=== PATIENT | female | born 1995 | race Caucasian/White ===

== ENCOUNTER 2017-12-31 15:55 | Outpatient (CLI) | payer OTHER ==
[2017-12-31 16:47] LABS: ABSOLUTE EOSINOPHILS # (AUTO) 0.1 10^3/uL (0.0-0.6); ABSOLUTE LYMPHOCYTES (AUTO) 1.3 10^3/uL (0.5-4.7); ABSOLUTE MONOCYTES (AUTO) 0.7 10^3/uL (0.1-1.4); ABSOLUTE NEUT (AUTO) 7.6 10^3/uL (1.7-8.2); BASOPHILS % (AUTO) 0.3 % (0-2); EOSINOPHILS % (AUTO) 1.2 % (0-6); HEMATOCRIT 32.3 % (36.0-47.0); HEMOGLOBIN 11.2 g/dL (12.0-15.5); LYMPHOCYTES % (AUTO) 13.7 % (13-45); MEAN CORPUSCULAR HEMOGLOBIN 30.6 pg (27.0-33.4); MEAN CORPUSCULAR HGB CONC 34.6 g/dL (32.0-36.0); MEAN CORPUSCULAR VOLUME 88 fl (80-97); MONOCYTES % (AUTO) 7.4 % (3-13); PLATELET COUNT 221 10^3/uL (150-450); RED BLOOD COUNT 3.65 10^6/uL (3.72-5.28); RED CELL DISTRIBUTION WIDTH 12.2 % (11.5-14.0); SEGMENTED NEUTROPHILS % (AUTO) 77.4 % (42-78); TOTAL CELLS COUNTED % (AUTO) 100 %; WHITE BLOOD COUNT 9.8 10^3/uL (4.0-10.5)
[2017-12-31 16:57] LABS: APPEARANCE,URINE CLEAR; BILIRUBIN,URINE NEGATIVE (NEGATIVE); COLOR,URINE STRAW; GLUCOSE, URINE NEGATIVE (NEGATIVE); KETONES,URINE NEGATIVE (NEGATIVE); LEUKOCYTE ESTERASE,URINE NEGATIVE (NEGATIVE); NITRITE,URINE NEGATIVE (NEGATIVE); PROTEIN,URINE NEGATIVE (NEGATIVE); URINE SPECIFIC GRAVITY 1.004; UROBILINOGEN,URINE NEGATIVE mg/dL (<2.0)
[2017-12-31 17:06] LABS: ALANINE AMINOTRANSFERASE 30 U/L (9-52); ALBUMIN 3.6 g/dL (3.5-5.0); ALKALINE PHOSPHATASE 97 U/L (38-126); ANION GAP 10 (5-19); ASPARTATE AMINO TRANSFERASE 20 U/L (14-36); BILIRUBIN,TOTAL 0.1 mg/dL (0.2-1.3); BLOOD UREA NITROGEN 8 mg/dL (7-20); CALCIUM 8.9 mg/dL (8.4-10.2); CARBON DIOXIDE 22 mmol/L (22-30); CHLORIDE 106 mmol/L (98-107); GLUCOSE 83 mg/dL (75-110); LDH 426 U/L (313-618); POTASSIUM 3.7 mmol/L (3.6-5.0); SODIUM 138.1 mmol/L (137-145); TOTAL PROTEIN 6.3 g/dL (6.3-8.2); URIC ACID 2.6 mg/dL (2.5-6.2)
[2017-12-31 17:19] LABS: UR PRO/CREAT RATIO RESULT 0.4 mg/mg (0.0-0.2); URINE CREATININE 30.2 mg/dL (16-327); URINE PROTEIN 13.3 mg/dL (<12)
[2017-12-31 17:22] LABS: URINE AMPHETAMINES SCREEN NEGATIVE; URINE BARBITURATES SCREEN NEGATIVE; URINE BENZODIAZEPINES SCREEN NEGATIVE; URINE COCAINE SCREEN NEGATIVE; URINE MARIJUANA (THC) SCREEN NEGATIVE; URINE METHADONE SCREEN NEGATIVE; URINE PHENCYCLIDINE SCREEN NEGATIVE
== END 2017-12-31 17:31 | disposition home or self-care (01) ==
LOC: LC 15:55
PROVIDERS: ATTEND Obstetrics & Gynecology
PROC: 4A1HXCZ Monitoring of Products of Conception, Cardiac Rate, External Approach (ICD-10-PCS; principal; 2017-12-31)
DX: O99.89 Other specified diseases and conditions complicating pregnancy, childbirth and the puerperium (principal); H53.8 Other visual disturbances; Z3A.26 26 weeks gestation of pregnancy
CPT/HCPCS: 36415; 80053; 80307; 81005; 82570; 83615; 84156; 84550; 85025

== ENCOUNTER 2018-01-01 18:36 | Outpatient (CLI) | payer OTHER ==
[2018-01-01 19:42] LABS: URINE PROTEIN 12.1 mg/dL (<12)
[2018-01-01 19:43] LABS: 24 HOUR URINE PROTEIN RESULT 242 mg/day (42-225)
== END 2018-01-01 19:57 | disposition home or self-care (01) ==
LOC: LC 18:36
PROVIDERS: ATTEND Obstetrics & Gynecology
PROC: 4A1HXCZ Monitoring of Products of Conception, Cardiac Rate, External Approach (ICD-10-PCS; principal; 2018-01-01)
DX: O99.89 Other specified diseases and conditions complicating pregnancy, childbirth and the puerperium (principal); H53.8 Other visual disturbances; Z3A.26 26 weeks gestation of pregnancy
CPT/HCPCS: 84156

== ENCOUNTER 2018-04-14 15:24 | Inpatient (IN) | payer OTHER ==
[2018-04-14 16:23] LABS: AMNISURE (ROM) POSITIVE (NEGATIVE)
[2018-04-14 16:25] LABS: APPEARANCE,URINE CLEAR; BILIRUBIN,URINE NEGATIVE (NEGATIVE); COLOR,URINE STRAW; GLUCOSE, URINE NEGATIVE (NEGATIVE); KETONES,URINE NEGATIVE (NEGATIVE); LEUKOCYTE ESTERASE,URINE NEGATIVE (NEGATIVE); NITRITE,URINE NEGATIVE (NEGATIVE); PROTEIN,URINE NEGATIVE (NEGATIVE); URINE SPECIFIC GRAVITY 1.004; UROBILINOGEN,URINE NEGATIVE mg/dL (<2.0)
[2018-04-14] MEDS ORDERED: RINGERS SOLUTION,LACTATED 1,000 ML IV ONE (16:40)
[2018-04-14] MEDS ORDERED: RINGERS SOLUTION,LACTATED 1,000 ML IV PRN (16:40)
[2018-04-14 16:45] LABS: URINE AMPHETAMINES SCREEN NEGATIVE; URINE BARBITURATES SCREEN NEGATIVE; URINE BENZODIAZEPINES SCREEN NEGATIVE; URINE COCAINE SCREEN NEGATIVE; URINE MARIJUANA (THC) SCREEN NEGATIVE; URINE METHADONE SCREEN NEGATIVE; URINE PHENCYCLIDINE SCREEN NEGATIVE
[2018-04-14 17:12] LABS: ABSOLUTE LYMPHOCYTES (AUTO) 1.7 10^3/uL (0.5-4.7); ABSOLUTE MONOCYTES (AUTO) 0.5 10^3/uL (0.1-1.4); ABSOLUTE NEUT (AUTO) 7.7 10^3/uL (1.7-8.2); BASOPHILS % (AUTO) 0.1 % (0-2); EOSINOPHILS % (AUTO) 0.4 % (0-6); HEMATOCRIT 31.8 % (36.0-47.0); HEMOGLOBIN 10.5 g/dL (12.0-15.5); LYMPHOCYTES % (AUTO) 17.5 % (13-45); MEAN CORPUSCULAR HEMOGLOBIN 25.7 pg (27.0-33.4); MEAN CORPUSCULAR HGB CONC 32.9 g/dL (32.0-36.0); MEAN CORPUSCULAR VOLUME 78 fl (80-97); PLATELET COUNT 183 10^3/uL (150-450); RED BLOOD COUNT 4.08 10^6/uL (3.72-5.28); RED CELL DISTRIBUTION WIDTH 14.2 % (11.5-14.0); TOTAL CELLS COUNTED % (AUTO) 100 %
--- NOTE | 2018-04-14 17:13 | Admission Physical ---
Datetime Report Generated by CPN: 04/14/2018 17:13 CURRENT ADMISSION Chief Complaint: Uterine Contractions Indication for Induction: Not Applicable Admit Impression : Term, Intrauterine Admit Plan: Initiate Labor Protocol ALLERGIES Medication Allergies: No Medication Allergies: No Known Allergies (01/01/2018) Latex: No Latex Allergies OBSTETRICAL HISTORY EDC: 04/08/2018 00:00 : 1 Para: 0 Term: 0 : 0 SAB: 0 IAB: 0 Ectopic: 0 Livin Cesareans: 0 VBACs: 0 Multiple Births: 0 Gestational Diabetes: No Rh Sensitization: No Incompetent Cervix: No RAMÓN: No Infertility: No ART Treatment: No Uterine Anomaly: No IUGR: No Hx Previous C/S: No Macrosomia: No Hx Loss/Stillborn: No PIH: No Hx : No Placenta Previa/Abruption: No Depression/PP Depression: No PTL/PROM: No Post Hemorrhage: No Obstetrical History Comments: G1 current SEE RECORDS Alcohol: No Marijuana : No Cocaine: No Other Illicit Drugs: No Cigarettes: Never Smoker. 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 Heart Disease: No Hosp/Surgery: No Autoimmune Disorder: No Anesthetic Complications: No Kidney Disease: No Abnormal Pap Smear: No Neuro/Epilepsy: No Psychiatric Disorders: No Other Medical Diseases: No Hepatitis/Liver Disease: No Significant Family History: No Varicosities/Phlebitis: No Trauma/Violence : No Thyroid Dysfunction: No INFECTIOUS HISTORY Gonorrhea: No Genital Herpes: No Chlamydia: No Tuberculosis: No Syphilis: No Hepatitis: No HIV/AIDS Exposure: No Rash or Viral Illness: No HPV: No PHYSICAL EXAM General: Normal HEENT: Normal Neurologic: Normal Thyroid: Normal Heart: Normal Lungs: Normal Breast: Deferred Back: Normal Abdomen: Normal Genitourinary Exam: Normal Extremities: Normal DTRs: Normal Pelvic Type: Adequate FETUS A EGA: 40.6 PLANS FOR LABOR AND DELIVERY Labor and Delivery: None Pain Management: Natural Feeding Preference: Breast Benefit of Breast Feed Discussed: Yes Circumcision: Yes INFORMED CONSENT Signature: with User ID: [email or web address]
[2018-04-15] MEDS ORDERED: NALBUPHINE HCL INJ 10 MG/1 ML AMPULE INJ ONE ×2 (00:08→05:15)
[2018-04-15] MEDS ORDERED: NALBUPHINE HCL INJ 10 MG/1 ML AMPULE ONE ×2 (00:12→05:18)
[2018-04-15] MEDS ORDERED: OXYTOCIN/NORMAL SALINE 20 UNIT/1,000 ML RTUINJ IV PRN (05:14)
[2018-04-15] MEDS ORDERED: OXYTOCIN/NORMAL SALINE 20 UNIT/1,000 ML RTUINJ ONE (05:19)
[2018-04-15] MEDS ORDERED: EPHEDRINE SULFATE INJ 50 MG/1 ML AMPULE ONE (07:45)
[2018-04-15] MEDS ORDERED: FENTANYL/BUPIVACAINE/NS/PF 300 MCG/150 ML RTUINJ EPI ONE (07:45)
[2018-04-15] MEDS ORDERED: BUPIVACAINE HCL 0.25 % INJ/PF (2.5 MG/1 ML) 30 ML VIAL ONE (07:45)
[2018-04-15] MEDS ORDERED: LIDOCAINE 1% INJ-PF (10 MG/ML) 30 ML SDV ONE (11:26)
[2018-04-15] MEDS ORDERED: MISOPROSTOL 0.2 MG TABLET ONE (11:26)
[2018-04-15 12:46] LABS: ARTERIAL BLOOD BASE EXCESS -19.2 mmol/L; ARTERIAL BLOOD FIO2 CORD BLOOD; ARTERIAL BLOOD H2CO3 3.93 mmol/L (1.05-1.35); ARTERIAL BLOOD HCO3 19.2 mmol/L (20-26); ARTERIAL BLOOD TOTAL CO2 23.2 mmol/L (21-25)
[2018-04-15 12:47] LABS: ARTERIAL BLOOD PCO2 130.6 mmHg (35-45); ARTERIAL BLOOD PH 6.79 (7.35-7.45); ARTERIAL BLOOD PO2 15.3 mmHg (80-100)
[2018-04-15] MEDS ORDERED: ACETAMINOPHEN 325 MG TABLET ONE (13:16)
[2018-04-15] MEDS ORDERED: IBUPROFEN 800 MG TABLET ONE (13:16)
[2018-04-15] MEDS ORDERED: AMPICILLIN SOD/SULBACTAM 3 GM VIAL ONE (13:17)
[2018-04-15] MEDS ORDERED: AMPICILLIN SOD/SULBACTAM 3 GM VIAL IV SCH (14:00)
--- NOTE | 2018-04-15 15:50 | Delivery Summary ---
Del Sum A-C Datetime Report Generated by CPN: 04/15/2018 15:50 DELIVERY PERSONNEL DELIVERY PERSONNEL: [id number] Delivery Doctor:: Esther Palmer MD/ Jasmyne HARPER CNM Labor and Delivery Nurse:: JONES aGtica Labor and Delivery Nurse:: Kimberlyn GONZALEZ RN Nursery Nurse:: Nelson ERICKSON RN Nursery Nurse:: Vero Zuniga RN Student Observers:: Velia AVALOS- STUDENT Mold Repairer/RF MICROWAVE ENGINEER: Danni Haddad CST Mold Repairer/RF MICROWAVE ENGINEER: Pia Cook CNA II Additional Personnel: : NEETA AGARWAL RN MATERNAL INFORMATION Delivery Anesthesia: Epidural Medications After Delivery: Pitocin Bolus-Please Comment; Pitocin Drip 20 Units/1000ml NSS Maternal Complications: Chorioamnionitis; Other Complication Details: maternal fever Provider Comments: Pt with strong involunary urge to push, anterior lip + 2 station, able to reduce lip, pt pushed, heart tones in sterling 70-80s without recovery after position changes, oxagen, IV fluids, Dr. Palmer called to bedside to evaluate for vacuum, vacuum placed, first pull to a pop off, second pull assisted to , 3rd pull to delivery, head delivered, loose nuchal noted, reduced, shoulders delivered with [facility] shoulders and body delivered., handed off to nurery staff and immediately transferred to NICU. Spontaneous delivery of placenta via baez mechanism, appears intact, 3 VC, repair as above, hemostasis acheived with external fundal massage and IV pitocin mother in stable condition, infant in NICU LABOR SUMMARY EDC: 04/08/2018 00:00 No. Babies in Womb: 1 Attempted: No Labor Anesthesia: Epidural LABOR INFORMATION Reason for Induction: Not Applicable Onset of Labor: 04/15/2018 09:54 Complete Dilatation: 04/15/2018 11:54 Oxytocin: Augmentation Group B Beta Strep: negative Antibiotics # of Doses: 0 Steroids Given: None Reason Steroids Not Administered: Not Applicable MEMBRANES Membranes Rupture Method: Spontaneous Rupture of Membranes: 04/13/2018 21:30 Length of Rupture (hr): 38.80 Amniotic Fluid Color: Clear Amniotic Fluid Amount: Scant STAGES OF LABOR Stage 1 hr: 2 Stage 1 min: 0 Stage 2 hr: 0 Stage 2 min: 24 Stage 3 hr: 0 Stage 3 min: 5 Total Time in Labor hr: 2 Total Time in Labor min: 29 VAGINAL DELIVERY Episiotomy: None Laceration #1: Vaginal Laceration Extension #1: First Degree Other Laceration: RT LABIAL LAC Laceration Repair: Yes Laceration Repair Note: repaired with 2-0 chromic using epidural anesthesia Sponge Count Correct: N/A Sharps Count Correct: N/A BABY A INFORMATION Infant Delivery Date/Time: 04/15/2018 12:18 Method of Delivery: Vaginal Born in Route : No : N/A Forceps: N/A Vacuum Extraction: Successful Shoulder Dystocia : No PRESENTATION/POSITION BABY A Presentation: Cephalic Cephalic Presentation: Vertex Vertex Position: Right Occipital Anterior Breech Presentation: N/A PLACENTA INFORMATION BABY A Placenta Delivery Time : 04/15/2018 12:23 Placenta Method of Delivery: Spontaneous Placenta Status: Delivered SCORES BABY A Heart Rate 1 min: Slow, Below 100 bpm Resp Effort 1 min: Absent Reflex Irritability 1 min: No Response Muscle Tone 1 min: Flaccid Color 1 min: Blue/Pale Resuscitation Effort 1 min: PPV/NCPAP SCORE 1 MIN: 1 Heart Rate 5 min: Slow, Below 100 bpm Resp Effort 5 min: Absent Reflex Irritability 5 min: No Response Muscle Tone 5 min: Some Flexion of Extremities Color 5 min: Body Valmy, Extremities Blue SCORE 5 MIN: 3 Heart Rate 10 min: >100 bpm Resp Effort 10 min: Slow, Irregular Reflex Irritability 10 min: No Response Muscle Tone 10 min: Some Flexion of Extremities Color 10 min: Body Valmy, Extremities Blue SCORE 10 MIN: 5 Heart Rate 15 min: >100 bpm Resp Effort 15 min: Slow, Irregular Reflex Irritability 15 min: Grimace Muscle Tone 15 min: Some Flexion of Extremities Color 15 min: Body Valmy, Extremities Blue SCORE 15 MIN: 6 Heart Rate 20 min: >100 bpm Resp Effort 20 min: Slow, Irregular Reflex Irritability 20 min: Cough or Sneeze or Pulls Away Muscle Tone 20 min: Some Flexion of Extremities Color 20 min: Completely Valmy SCORE 20 MIN: 8 INFORMATION BABY A Gestational Age at Delivery: 41.0 Gestational Status: Late Term- 41- 41.6 Weeks Outcome : Liveborn Condition : Fair Infant Sex: Male IDENTIFICATION BABY A Infant Verification Date/Time: 04/15/2018 12:58 ID Band Number: [id number] Mother's Name Verified: Yes Infant RN Verifying : BL ROULUND, RN Additional Verifying Personnel: A LAUGHLIN, RN WEIGHT/LENGTH BABY A Birthweight (gm): 4380 Infant Weight (lb): 9 Weight (oz): 10 Infant Length (in): 21.50 Length (cm): 54.61 CORD INFORMATION BABY A No. Cord Vessels: 3 Nuchal Cord : Around Neck x1, Loose Cord Blood Taken: Yes-For Storage (Mom's Blood type +) Banking/Donate Info: VENOUS CORD GAS DONE Infant Suction: None ASSESSMENT BABY A Complications: Extended Bradycardia; Multiple Variable Decels Complications- Other: terminal meconium Skin to Skin: No Skin to Skin Time (min): 0 Production Tester/ALS Called : No Care By: Nelson ERICKSON RN / Anum HERMAN RN Transferred To: NICU BABY B INFORMATION : N/A SIGNATURES Assignment: Esther Palmer MD Signature: with User ID: Shana : with User ID: [email or web address]
[2018-04-15] MEDS ORDERED: ACETAMINOPHEN 325 MG TABLET PO ONE (16:05)
[2018-04-15] MEDS ORDERED: MEASLES,MUMPS&RUBELLA VACC/PF 0.5 ML VIAL SUBCUT PRN (17:53)
[2018-04-15] MEDS ORDERED: DIBUCAINE 1% OINTMENT 28 GM TP PRN (17:53)
[2018-04-15] MEDS ORDERED: ZOLPIDEM TARTRATE 5 MG TABLET PO PRN (17:53)
[2018-04-15] MEDS ORDERED: BENZOCAINE/MENTHOL AEROSOL SPRAY 56 ML TOP PRN (17:53)
[2018-04-15] MEDS ORDERED: DIPH/PERTUSS(ACELL)/TETANUS VAC/PF 0.5 ML SYR (>=10YO) IM PRN (17:53)
[2018-04-15] MEDS: IBUPROFEN 800 MG TABLET PO SCH (23:05)
[2018-04-15] MEDS: AMPICILLIN SODIUM/SULBACTAM NA 3 GM in NORMAL SALINE 100 ML IV SCH (23:06)
[2018-04-16] MEDS: IBUPROFEN 800 MG TABLET PO SCH (05:15)
[2018-04-16] MEDS: AMPICILLIN SODIUM/SULBACTAM NA 3 GM in NORMAL SALINE 100 ML IV SCH (05:15)
[2018-04-16 07:21] LABS: HEMATOCRIT 27.3 % (36.0-47.0); HEMOGLOBIN 8.9 g/dL (12.0-15.5); MEAN CORPUSCULAR HEMOGLOBIN 25.3 pg (27.0-33.4); MEAN CORPUSCULAR HGB CONC 32.5 g/dL (32.0-36.0); MEAN CORPUSCULAR VOLUME 78 fl (80-97); PLATELET COUNT 149 10^3/uL (150-450); RED CELL DISTRIBUTION WIDTH 14.2 % (11.5-14.0); WHITE BLOOD COUNT 15.4 10^3/uL (4.0-10.5)
--- NOTE | 2018-04-16 07:27 | PDOC DISCHARGE SUMMARY ---
Final Diagnosis Discharge Date: 04/16/18 - Final Diagnosis (1) Is this a current diagnosis for this admission?: Yes (2) Delivery of Is this a current diagnosis for this admission?: Yes (3) Vacuum extraction, delivered, current hospitalization Is this a current diagnosis for this admission?: Yes (4) Chorioamnionitis Is this a current diagnosis for this admission?: Yes Discharge Data - Discharge Medication Prescriptions: Doxycycline Hyclate [Vibramycin] 100 mg PO BID #14 capsule Ibuprofen [Motrin 800 mg Tablet] 800 mg PO Q8 #60 tablet Home Medications: Calcium Carbonate [Tums] 200 mg PO PRN PRN 01/01/18 No122/Iron/Folic Acid [ Multi Tablet] 1 each PO DAILY 01/01/18 Doxycycline Hyclate [Vibramycin] 100 mg PO BID #14 capsule 04/16/18 Ibuprofen [Motrin 800 mg Tablet] 800 mg PO Q8 #60 tablet 04/16/18 Reason(s) for Admission: PROM Intrapartum Procedure(s): Vacuum Extraction Complication(s): Laceration-Vaginal - Diagnosis Test Laboratory: Temp Pulse Resp BP Pulse Ox 98.2 F 78 18 105/58 L 99 04/16/18 06:00 04/16/18 06:00 04/16/18 06:00 04/16/18 06:00 04/16/18 06:00 04/14/18 04/14/18 15:29 16:44 RBC 4.08 Hgb 10.5 L Hct 31.8 L Urine Opiates Screen NEGATIVE - Discharge information/Instructions Discharge Activity: Balance Activity w/Rest, Pelvic Rest, No tub bath Discharge Diet: As Tolerated Disposition: HOME, SELF-CARE Follow up with: [facility] in: 4, Weeks
[2018-04-16 09:09] VITALS: BP 125/74
[2018-04-16] MEDS ORDERED: DOCUSATE SODIUM 100 MG CAPSULE PO SCH (10:00)
[2018-04-16] MEDS ORDERED: SENNOSIDES/DOCUSATE 8.6-50 MG 1 EACH TABLET PO SCH (10:00)
[2018-04-16] MEDS ORDERED: FERROUS SULFATE 325 MG TABLET PO SCH (10:00)
[2018-04-16] MEDS ORDERED: PRENATAL VITAMIN W DHA CAPSULE PO SCH (10:00)
== END 2018-04-16 09:55 | disposition home or self-care (01) | DRG 775 ==
LOC: LC 15:24 → LR 16:50 → 2S 04-15 15:39
PROVIDERS: ADMIT Obstetrics & Gynecology Gynecology; ATTEND Obstetrics & Gynecology Gynecology
PROC: 4A1HXCZ Monitoring of Products of Conception, Cardiac Rate, External Approach (ICD-10-PCS; 2018-04-14)
PROC: 10D07Z6 Extraction of Products of Conception, Vacuum, Via Natural or Artificial Opening (ICD-10-PCS; principal; 2018-04-15)
PROC: 0HQ9XZZ Repair Perineum Skin, External Approach (ICD-10-PCS; 2018-04-15)
DX: O76 Abnormality in fetal heart rate and rhythm complicating labor and delivery (principal); O41.1230 Chorioamnionitis, third trimester, not applicable or unspecified; O70.0 First degree perineal laceration during delivery; O69.81X0 Labor and delivery complicated by cord around neck, without compression, not applicable or unspecified; O77.0 Labor and delivery complicated by meconium in amniotic fluid; Z3A.41 41 weeks gestation of pregnancy; Z37.0 Single live birth
CPT/HCPCS: 36415; 80307; 81005; 82803; 84112; 85025; 85027; 86592; 86850; 86900; 86901; 88307; 94760; J0295; J2300; J2590; J3010; J3490